=== PATIENT | male | born 1930 | race Caucasian/White ===

== ENCOUNTER 2017-09-04 11:51 | Emergency (ER) | payer OTHER, MEDICARE ==
[~2017-09-04] VITALS: Ht 193 cm; Wt 108.9 kg
[~2017-09-04 11:51] MED LIST: ALEVE220 MG PO; ALLOPURINOL; ARICEPT 5 MG TAB5 MG PO; ASPIRIN325; BENICAR; CLARITIN; COZAAR 25 MG TA25 M1 PO; DOXYCYCLINE; DUONEB 2.5-0.5 M3 ML INH; L-THYROXINE; LIDODERM 5%1 PATC1 TRANSDERM; LIPITOR20 MG PO; NORCO 5-325 TA1 EACH PO; PEG3350510 GM PO; VIAGRA25 MG; ZANTAC
[2017-09-04] MEDS ORDERED: ALLOPURINOL 10100 M1 PO (12:54)
[2017-09-04] MEDS ORDERED: CLARITIN10 MG PO (12:54)
[2017-09-04] MEDS ORDERED: SYNTHROID100 MCG PO (12:55)
[2017-09-04] MEDS ORDERED: DOXYCYCLINE 10100 MG PO (13:26)
[2017-09-04 13:35] VITALS: BP 110/74
== END 2017-09-04 13:36 | disposition home or self-care (01) ==
LOC: ER 11:51
DX: J18.9 Pneumonia, unspecified organism (principal); M19.90 Unspecified osteoarthritis, unspecified site; Z90.89 Acquired absence of other organs; Z85.46 Personal history of malignant neoplasm of prostate; Z88.1 Allergy status to other antibiotic agents

== ENCOUNTER 2017-11-24 18:02 | Emergency (ER) | payer OTHER, MEDICARE ==
[~2017-11-24] VITALS: Ht 190.5 cm; Wt 99.8 kg
[~2017-11-24 18:02] MED LIST changes: +ALLOPURINOL 10100 M1 PO; +CLARITIN10 MG PO; +DOXYCYCLINE 10100 MG PO; +SYNTHROID100 MCG PO
[2017-11-24] MEDS ORDERED: ULTRAM 50MG TAB50 MG PO (19:18)
[2017-11-24] MEDS ORDERED: MOBIC15 MG PO (19:18)
[2017-11-24 20:20] VITALS: BP 148/88
== END 2017-11-24 20:22 | disposition home or self-care (01) ==
LOC: ER 18:02
DX: S22.41XA Multiple fractures of ribs, right side, initial encounter for closed fracture (principal); M19.90 Unspecified osteoarthritis, unspecified site; Z88.1 Allergy status to other antibiotic agents; Z88.8 Allergy status to other drugs, medicaments and biological substances; Z87.891 Personal history of nicotine dependence; W01.0XXA Fall on same level from slipping, tripping and stumbling without subsequent striking against object, initial encounter; Y93.89 Activity, other specified; Y92.89 Other specified places as the place of occurrence of the external cause; Y99.8 Other external cause status